=== PATIENT | male | born 1975 | race Caucasian/White ===

== ENCOUNTER → 2017-03-09 | Outpatient (CLI) | payer BC ==
--- NOTE | 2017-03-09 15:20 | XR ---
Right leg HISTORY: Pain 2 views of the right No comparisons Bone mineralization, joint spaces and alignment are maintained IMPRESSION: No fracture or dislocation.
--- NOTE | 2017-03-09 15:21 | XR ---
Right knee HISTORY: Right knee pain 3 views of the right knee There is no joint effusion. Bone mineralization, joint spaces and alignment are maintained. IMPRESSION: No fracture or dislocation.
== END | disposition home or self-care (01) ==
LOC: RADXRMAIN 13:28
PROVIDERS: ATTEND Family Medicine
DX: M25.561 Pain in right knee (principal); M79.604 Pain in right leg

== ENCOUNTER → 2017-03-22 | Outpatient (CLI) | payer BC ==
--- NOTE | 2017-03-22 23:08 | MR ---
EXAMINATION TYPE: MR knee RT wo con DATE OF EXAM: 03/22/2017 COMPARISON: NONE HISTORY: Rt knee pain/injury 8 weeks ago TECHNIQUE: Multiplanar, multisequence imaging of the right knee is performed without IV contrast. FINDINGS: The anterior and posterior cruciate ligaments are intact. The lateral collateral ligaments are intact . There is mild knee joint effusion. Patella tendon is intact. Joint spaces are fairly normal. There is minimal increased signal within the substance of the posterior horn medial meniscus. There is no e vidence of a tear. There is no sign of fracture. There is increased signal and thickening in the medial collateral ligament at its attachment on the m edial femoral condyle. IMPRESSION: Knee joint effusion. There is is at least a partial tear of the medial collateral ligament. Minor deg enerative changes within the posterior horn of the medial meniscus without a complete tear.
== END | disposition home or self-care (01) ==
LOC: RADMRIMAIN 20:55
PROVIDERS: ATTEND Orthopaedic Surgery
DX: S83.411A Sprain of medial collateral ligament of right knee, initial encounter (principal)

== ENCOUNTER 2018-05-04 06:49 | Day surgery (SDC) | payer BC ==
[2018-04-29 10:36] VITALS: BMI 26.4
[~2018-05-04 06:49] MED LIST: HYDROmorphone 0.5 MG/0.5 ML SYRINGE IVP PRN; LACTATED RINGERS 1,000 ML IV SCH; LIDOCAINE 1% 20 ML VIAL (10MG/ML) FOR IV START INTRADERMA PRN
[2018-05-04] MEDS ORDERED: LACTATED RINGERS 1,000 ML IV ONE ×2 (07:07)
[2018-05-04 07:17] VITALS: TEMP 98.5
[2018-05-04] MEDS ORDERED: PROPOFOL 10 MG/ML 20 ML VIAL IV ONE (07:42)
--- NOTE | 2018-05-04 08:02 | P.GSHP ---
History of Present Illness H&P Date: 05/04/18 Chief Complaint: GI bleed This a 43-year-old male who presents today for colonoscopy. Patient has issues with rectal bleeding. He states he has hemorrhoids and possible anal fissure. Past Medical History Past Medical History: GI Bleed Additional Past Medical History / Comment(s): hemorrhoids History of Any Multi-Drug Resistant Organisms: None Reported Past Surgical History: Joint Replacement Additional Past Surgical History / Comment(s): rt hip replacement Past Anesthesia/Blood Transfusion Reactions: No Reported Reaction Smoking Status: Never smoker - Past Family History Mother Family Medical History: No Reported History Medications and Allergies Home Medications Medication Instructions Recorded Confirmed Type ALPRAZolam 0.5 mg PO TID PRN 12/06/14 05/04/18 History Neutrogenics 1 dose PO DAILY 04/29/18 05/04/18 History Viagra (Unknown) 1 dose PO DAILY PRN 04/29/18 05/04/18 History Allergies Allergy/AdvReac Type Severity Reaction Status Date / Time No Known Allergies Allergy Verified 05/04/18 07:18 Surgical - Exam Vital Signs Temp Pulse Resp BP Pulse Ox 98.5 F 78 14 120/77 94 L 05/04/18 07:16 05/04/18 07:16 05/04/18 07:16 05/04/18 07:16 05/04/18 07:16 - General well developed, no distress - Eyes PERRL - ENT normal pinna - Neck no masses - Respiratory normal expansion - Cardiovascular Rhythm: regular - Abdomen Abdomen: soft, non tender Assessment and Plan Assessment: GI bleed We'll perform colonoscopy to evaluate for possible hemorrhoids/anal fissure
--- NOTE | 2018-05-04 08:15 | P.OP ---
Date of Procedure: 05/04/18 Preoperative Diagnosis: GI bleed Anal fissure Hemorrhoids Postoperative Diagnosis: Diverticulosis Internal and external hemorrhoids Posterior midline anal fissure Procedure(s) Performed: Colonoscopy Anesthesia: MAC Surgeon: Anibal Garg Pathology: none sent Condition: stable Disposition: PACU Description of Procedure: The patient's placed on the endoscopy table in the lateral position. He received IV sedation. Digital rectal exam was performed which revealed some internal and external fissures. There was a small anal fissure the posterior midline. The flexible colonoscope was then placed patient anus and passed throughout the entire colon. The ileocecal valve was visualized. The cecum, ascending and transverse colon appeared normal. In the descending and sigmoid colon there was moderate diverticular changes. The scope was then brought back the rectum and this appeared normal. The scope was then retroflexed and there was internal hemorrhoids noted. Scope was then brought through the anus. There were some external hemorrhoids and a small posterior midline fissure seen. The scope was withdrawn for patient.
[2018-05-04 08:37] VITALS: BP 117/79; PULSE 63; RESP 18
== END 2018-05-04 09:04 | disposition home or self-care (01) ==
LOC: ORWHC2ENDO 06:49
PROVIDERS: ATTEND Surgery
DX: K57.30 Diverticulosis of large intestine without perforation or abscess without bleeding (principal); K64.8 Other hemorrhoids; K64.4 Residual hemorrhoidal skin tags; K60.2 Anal fissure, unspecified; Z96.641 Presence of right artificial hip joint; Z79.899 Other long term (current) drug therapy
CPT/HCPCS: 45378; J2704

== ENCOUNTER 2018-06-01 20:43 | Emergency (ER) | payer BC ==
[2018-06-01 21:01] VITALS: TEMP 97
[2018-06-01] MEDS ORDERED: KETOROLAC 30 MG/ML 1 ML VIAL IVP STA (21:35)
--- NOTE | 2018-06-01 21:39 | ED ---
General Adult HPI - General Chief complaint: Urogenital Stated complaint: Urogenital Time Seen by Provider: 06/01/18 21:13 Source: patient Mode of arrival: ambulatory Limitations: no limitations - History of Present Illness Initial comments: This patient is a 43-year-old man who was in his usual state of health until about 7:30 tonight. Around that time he felt like he had to urinate but was not able to pass any urine. He states that he looked on the Internet and thought that he may have urinary tract infection so he went to buy some Azo and took that. About one hour ago he developed pain in the left testicle it does go up toward the left lower quadrant and left flank. He describes as sharp pain , constant, moderately severe intensity. He has not noted worsening or relieving symptoms. No other systemic symptoms. Onset/Timin -: hour(s) Quality: sharp Consistency: constant Improves with: none Worsens with: none Associated Symptoms: other (Inability to urinate) - Related Data Home Medications Medication Instructions Recorded Confirmed Phenazopyridine HCl 95 mg PO TID PRN 06/01/18 06/01/18 Allergies Allergy/AdvReac Type Severity Reaction Status Date / Time No Known Allergies Allergy Verified 06/01/18 21:05 Review of Systems ROS Statement: Those systems with pertinent positive or pertinent negative responses have been documented in the HPI. ROS Other: All systems not noted in ROS Statement are negative. Constitutional: Denies: fever, chills Respiratory: Denies: cough, dyspnea Cardiovascular: Denies: chest pain, edema Gastrointestinal: Reports: as per HPI, abdominal pain, other (Hemorrhoids). Denies: nausea, vomiting, diarrhea, constipation, melena, hematochezia Genitourinary: Reports: urgency, testicular pain. Denies: dysuria, frequency, hematuria, discharge, testicular mass Musculoskeletal: Denies: back pain Skin: Denies: rash Neurological: Denies: headache Past Medical History Past Medical History: GI Bleed Additional Past Medical History / Comment(s): hemorrhoids History of Any Multi-Drug Resistant Organisms: None Reported Past Surgical History: Joint Replacement Additional Past Surgical History / Comment(s): rt hip replacement Past Anesthesia/Blood Transfusion Reactions: No Reported Reaction Past Psychological History: No Psychological Hx Reported Smoking Status: Never smoker Past Alcohol Use History: None Reported Past Drug Use History: None Reported - Past Family History Mother Family Medical History: No Reported History General Exam Limitations: no limitations General appearance: alert, in no apparent distress Head exam: Present: atraumatic, normocephalic Eye exam: Present: normal appearance. Absent: scleral icterus, conjunctival injection Respiratory exam: Present: normal lung sounds bilaterally. Absent: respiratory distress, wheezes, rales, rhonchi, stridor Cardiovascular Exam: Present: regular rate, normal rhythm, normal heart sounds. Absent: systolic murmur, diastolic murmur, rubs, gallop GI/Abdominal exam: Present: soft, normal bowel sounds. Absent: distended, tenderness, guarding, rebound, rigid, mass, pulsatile mass, hernia exam: Present: normal inspection, vertical testicular lie, circumcision, other (No inguinal nodes). Absent: testicular tenderness, urethral discharge, scrotal swelling External exam: Present: normal external exam Extremities exam: Present: normal inspection, normal capillary refill. Absent: pedal edema, calf tenderness Back exam: Present: normal inspection. Absent: CVA tenderness (R), CVA tenderness (L) Neurological exam: Present: alert Skin exam: Present: warm, dry, intact, normal color. Absent: rash Course Vital Signs 06/01/18 06/01/18 06/01/18 20:57 21:57 22:48 Temperature 97 F L Pulse Rate 66 59 L 68 Respiratory 18 16 16 Rate Blood Pressure 123/100 126/86 127/90 O2 Sat by Pulse 98 95 96 Oximetry Medical Decision Making - Medical Decision Making The patient did have resolution of the symptoms here in the emergency department. This was prior to receiving any medication. He does have urine with hematuria, consistent with stone. I did offer imaging, but patient states that the pain is gone and he needs to get his son home so he declined to have imaging today. We discussed appropriate further care and follow-up as well as return parameters. - Lab Data Result diagrams: 06/01/18 21:33 06/01/18 21:33 Lab Results 06/01/18 06/01/18 06/01/18 Range/Units 21:00 21:33 21:33 WBC 9.8 (3.8-10.6) k/uL RBC 4.68 (4.30-5.90) m/uL Hgb 15.7 (13.0-17.5) gm/dL Hct 43.0 (39.0-53.0) % MCV 92.0 (80.0-100.0) fL MCH 33.5 (25.0-35.0) pg MCHC 36.4 (31.0-37.0) g/dL RDW 12.7 (11.5-15.5) % Plt Count 313 (150-450) k/uL Neutrophils % 67 % Lymphocytes % 23 % Monocytes % 5 % Eosinophils % 3 % Basophils % 1 % Neutrophils # 6.6 (1.3-7.7) k/uL Lymphocytes # 2.3 (1.0-4.8) k/uL Monocytes # 0.5 (0-1.0) k/uL Eosinophils # 0.3 (0-0.7) k/uL Basophils # 0.1 (0-0.2) k/uL Sodium 139 (137-145) mmol/L Potassium 4.2 (3.5-5.1) mmol/L Chloride 106 (98-107) mmol/L Carbon Dioxide 23 (22-30) mmol/L Anion Gap 10 mmol/L BUN 22 H (9-20) mg/dL Creatinine 0.88 (0.66-1.25) mg/dL Est GFR (CKD-EPI)AfAm >90 (>60 ml/min/1.73 sqM) Est GFR (CKD-EPI)NonAf >90 (>60 ml/min/1.73 sqM) Glucose 124 H (74-99) mg/dL Calcium 9.5 (8.4-10.2) mg/dL Urine Color Dark Yellow Urine Appearance Clear (Clear) Urine pH 5.5 (5.0-8.0) Ur Specific [place] 1.023 (1.001-1.035) Urine Protein Negative (Negative) Urine Glucose (UA) Negative (Negative) Urine Ketones Negative (Negative) Urine Blood Moderate H (Negative) Urine Nitrite Negative (Negative) Urine Bilirubin Negative (Negative) Urine Urobilinogen <2.0 (<2.0) mg/dL Ur Leukocyte Esterase Negative (Negative) Urine RBC 51 H (0-5) /hpf Urine WBC 1 (0-5) /hpf Ur Squamous Epith Cells <1 (0-4) /hpf Urine Mucus Rare H (None) /hpf Disposition Clinical Impression: Kidney stone Disposition: HOME SELF-CARE Condition: Good Instructions: Kidney Stones (ED) Is patient prescribed a controlled substance at d/c from ED?: No Referrals: Blaine Gonzalez DO [Primary Care Provider] - 1-2 days
[2018-06-01 21:49] LABS: Basophils # (A) 0.1 k/uL (0-0.2); Basophils % (A) 1 %; Eosinophils # (A) 0.3 k/uL (0-0.7); Eosinophils % (A) 3 %; HGB 15.7 gm/dL (13.0-17.5); Lymphocytes # (A) 2.3 k/uL (1.0-4.8); Lymphocytes % (A) 23 %; MCH 33.5 pg (25.0-35.0); MCHC 36.4 g/dL (31.0-37.0); Mean Platelet Volume 6.6; Monocytes # (A) 0.5 k/uL (0-1.0); Monocytes % (A) 5 %; Neutrophils # (A) 6.6 k/uL (1.3-7.7); Neutrophils % (A) 67 %; Platelet Count 313 k/uL (150-450); RBC 4.68 m/uL (4.30-5.90); RDW 12.7 % (11.5-15.5); WBC 9.8 k/uL (3.8-10.6)
[2018-06-01 21:58] VITALS: RESP 16
[2018-06-01 21:59] LABS: Anion Gap 10 mmol/L; Blood Urea Nitrogen 22 mg/dL (9-20); Calcium 9.5 mg/dL (8.4-10.2); Carbon Dioxide 23 mmol/L (22-30); Chloride 106 mmol/L (98-107); Glucose 124 mg/dL (74-99); Potassium 4.2 mmol/L (3.5-5.1); Sodium 139 mmol/L (137-145)
[2018-06-01 22:14] LABS: Appearance,Urine Clear (Clear); Bilirubin,Urine Negative (Negative); Blood,Urine Moderate (Negative); Color,Urine Dark Yellow; Glucose,Urine (UA) Negative (Negative); Ketones,Urine Negative (Negative); Leukocyte Esterase,Urine Negative (Negative); Mucus,Urine Rare /hpf; Nitrite,Urine Negative (Negative); PH, Urine 5.5 (5.0-8.0); Protein,Urine Negative (Negative); RBC,Urine 51 /hpf (0-5); Specific Gravity,Urine 1.023 (1.001-1.035); Squamous Epithelial Cell,Urine <1 /hpf (0-4); Urobilinogen,Urine <2.0 mg/dL (<2.0); WBC,Urine 1 /hpf (0-5)
[2018-06-01 22:49] VITALS: BP 127/90; PULSE 68
== END 2018-06-01 22:49 | disposition home or self-care (01) ==
LOC: EC 20:43
DX: N20.0 Calculus of kidney (principal); N50.812 Left testicular pain; Z96.641 Presence of right artificial hip joint
CPT/HCPCS: 36415; 80048; 85025; 81001; 99284; 96374; J1885

== ENCOUNTER 2018-07-13 06:07 | Day surgery (SDC) | payer BC ==
[2018-07-11 09:35] VITALS: BMI 26.7
[~2018-07-13 06:07] MED LIST changes: +DEXAMETHASONE SOD PHOSPHATE 10 MG/ML 1 ML VIAL IV ONE; +HEPARIN SODIUM,PORCINE 5,000 UNIT/ML 1 ML VIAL SQ ONE; +MIDAZOLAM 2 MG/2 ML VIAL IV PRN; +ONDANSETRON 4 MG/2 ML VIAL IVP ONE; +Pre Op ABX Message 1 EACH MISC MISCELLANE ONE; +SCOPOLAMINE 1.5MG/72HR PATCH TRANSDERM ONE
[2018-07-13] MEDS ORDERED: NA PHOS,M-B/NA PHOS,DI-BA 133 ML ENEMA RECTAL ONE (06:13)
[2018-07-13 07:02] VITALS: RESP 16; TEMP 97.9
[2018-07-13] MEDS ORDERED: fentaNYL (PF) 50 MCG/ML 2 ML AMP ONE (08:03)
[2018-07-13] MEDS ORDERED: MIDAZOLAM 2 MG/2 ML VIAL ONE (08:03)
[2018-07-13] MEDS ORDERED: KETAMINE 10 MG/ML 20 ML VIAL ONE (08:03)
[2018-07-13] MEDS ORDERED: KETOROLAC 30 MG/ML 1 ML VIAL ONE (08:03)
[2018-07-13] MEDS ORDERED: PROPOFOL 10 MG/ML 20 ML VIAL IV ONE (08:03)
[2018-07-13] MEDS ORDERED: LIDOCAINE 1% INJ 10MG/ML (20 ML MDV) ONE (08:03)
--- NOTE | 2018-07-13 08:04 | P.GSHP ---
History of Present Illness H&P Date: 07/13/18 Chief Complaint: Hemorrhoids 43-year-old male presents today for hemorrhoidectomy. Patient had problems internal and external hemorrhoids. Past Medical History Past Medical History: GI Bleed Additional Past Medical History / Comment(s): hemorrhoids, KIDNEY STONES History of Any Multi-Drug Resistant Organisms: None Reported Past Surgical History: Joint Replacement Additional Past Surgical History / Comment(s): rt hip replacement Past Anesthesia/Blood Transfusion Reactions: No Reported Reaction Smoking Status: Never smoker - Past Family History Mother Family Medical History: No Reported History Medications and Allergies Home Medications Medication Instructions Recorded Confirmed Type No Known Home Medications 07/11/18 07/13/18 History Allergies Allergy/AdvReac Type Severity Reaction Status Date / Time No Known Allergies Allergy Verified 07/13/18 06:49 Surgical - Exam Vital Signs Temp Pulse Resp BP Pulse Ox 97.9 F 61 16 125/82 96 07/13/18 06:59 07/13/18 06:59 07/13/18 06:59 07/13/18 06:59 07/13/18 06:59 - General well developed, well nourished, no distress - Eyes PERRL - ENT normal pinna - Neck no masses - Respiratory normal expansion - Cardiovascular Rhythm: regular - Abdomen Abdomen: soft, non tender - Rectum Internal and external hemorrhoids Assessment and Plan Assessment: Internal and external hemorrhoids. We'll perform hemorrhoiddectomy
[2018-07-13] MEDS ORDERED: BUPIVACAIN-EPI 0.25%-1:200,000 30 ML VIAL SQ ONE (08:29)
--- NOTE | 2018-07-13 09:11 | P.OP ---
Date of Procedure: 07/13/18 Preoperative Diagnosis: Internal and external hemorrhoids Postoperative Diagnosis: Internal and external hemorrhoids Procedure(s) Performed: Internal and external hemorrhoidectomy Anesthesia: MAC, local Surgeon: Anibal Garg Estimated Blood Loss (ml): 5 Pathology: other (Internal and external hemorrhoids) Condition: stable Disposition: PACU Description of Procedure: The patient's placed on the operating table in the prone jackknife position. He received IV sedation. His anus was prepped and draped usual fashion. Using 1% local Xylocaine a block of the anus was performed. The patient had internal and external hemorrhoids. The left lateral hemorrhoid column was examined. The bivalved anal retractors placed and anus. And then using a pair of Allis clamps the hemorrhoidal column was grasped. Using the Harmonic scissors the hemorrhoidectomy is performed. Next the right anterior and right posterior columns were removed in identical fashion. The is suspected for bleeding. Several small superficial veins were coagulate. The anus was packed with Gelfoam. Patient tolerated well and was sent to recovery in stable condition.
[2018-07-13] MEDS ORDERED: HYDROcodone/APAP 7.5-325MG 1 EACH TAB PO ONE (09:29)
[2018-07-13 09:54] VITALS: BP 112/78; PULSE 71
== END 2018-07-13 09:58 | disposition home or self-care (01) ==
LOC: OR 06:07
PROVIDERS: ATTEND Surgery
DX: K64.4 Residual hemorrhoidal skin tags (principal); K64.8 Other hemorrhoids; K62.9 Disease of anus and rectum, unspecified; Z87.442 Personal history of urinary calculi
CPT/HCPCS: 88304; 46260; J2250; J1644; J1100; J2405; J2001; J3010; J1885; J2704

== ENCOUNTER 2018-07-17 15:43 | Emergency (ER) | payer BC ==
[2018-07-17 16:09] VITALS: RESP 16
[2018-07-17] MEDS ORDERED: ACETAMINOPHEN TAB 325 MG TAB PO STA (17:16)
--- NOTE | 2018-07-17 17:25 | ED ---
General Adult HPI - General Chief complaint: Recheck/Abnormal Lab/Rx Stated complaint: Post surgery stitiches came out Source: patient, RN notes reviewed, old records reviewed Mode of arrival: ambulatory Limitations: no limitations - History of Present Illness Initial comments: 43-year-old male patient with no pertinent past history presents to ED with rectal bleeding. Patient is 4 days status post hemorrhoidectomy. Last night while having bowel movement he experienced pain, has had a moderate amount of bleeding since. Patient states that he has soiled approximately 10 pads since last night. Patient presents to ER for further evaluation. Surgery was performed by Dr. Lemus. Patient denies other symptoms including chest pain, shortness of breath, abdominal pain, nausea vomiting diarrhea, fever or chills. Systemic: Pt denies fatigue, myalgia, fever/chills, rash. Pt denies weakness, night sweats, weight loss. Neuro: Pt denies headache, visual disturbances, syncope or pre-syncope. HEENT: Pt denies ocular discharge or irritation, otalgia, rhinorrhea, pharyngitis or notable lymphadenopathy. Cardiopulmonary: Pt denies chest pain, SOB, heart palpitations, dyspnea on exertion. Abdominal/GI: Pt denies abdominal pain, n/v/d. : Pt denies dysuria, burning w/ urination, frequency/urgency. Denies new onset urinary or bowel incontinence. MSK: Pt denies myalgia, loss of strength or function in extremities. Neuro: Pt denies new onset weakness, paresthesias. - Related Data Home Medications Medication Instructions Recorded Confirmed diphenhydrAMINE [Benadryl] 50 mg PO Q4H PRN 07/17/18 07/17/18 Previous Rx's Medication Instructions Recorded Docusate [Colace] 100 mg PO BID #20 capsule 07/13/18 HYDROcodone/APAP 7.5-325MG [[place] 1 tab PO Q4H PRN 3 Days #18 tab 07/13/18 7.5-325] Allergies Allergy/AdvReac Type Severity Reaction Status Date / Time acetaminophen [From [place]] AdvReac Itching Verified 07/17/18 16:33 hydrocodone [From [place]] AdvReac Itching Verified 07/17/18 16:33 Review of Systems ROS Statement: Those systems with pertinent positive or pertinent negative responses have been documented in the HPI. ROS Other: All systems not noted in ROS Statement are negative. Past Medical History Past Medical History: GI Bleed Additional Past Medical History / Comment(s): hemorrhoids, KIDNEY STONES History of Any Multi-Drug Resistant Organisms: None Reported Past Surgical History: Joint Replacement Additional Past Surgical History / Comment(s): rt hip replacement Past Anesthesia/Blood Transfusion Reactions: No Reported Reaction Past Psychological History: No Psychological Hx Reported Smoking Status: Never smoker - Past Family History Mother Family Medical History: No Reported History General Exam - General Exam Comments Initial Comments: Constitutional: NAD, AOX3, Pt has pleasant affect. HEENT: NC/AT, trachea midline, neck supple, no lymphadenopathy. Posterior pharynx non erythematous, without exudates. External ears appear normal, without discharge. Mucous membranes moist. Eyes PERRLA, EOM intact. There is no scleral icterus. No pallor noted. Cardiopulmonary: RRR, no murmurs, rubs or gallops, no JVD noted. Lungs CTAB in anterior and posterior greene. No peripheral edema. Abdominal exam: Abdomen soft and non-distended. Abdomen non-tender to palpation in all 4 quadrants. Bowel sounds active in LLQ. No hepatosplenomegaly. No ecchymosis Neuro: CN II-XII grossly intact. No nuchal rigidity. MSK: No posterior calf tenderness bilaterally, homans sign negative bilaterally. Posterior tibialis and radial pulse +2 bilaterally. Sensation intact in upper and lower extremities. Full active ROM in upper and lower extremities, 5/5 strength. Rectal: Approximately 0.5 cm area of skin previously closed now moderately open at 7:00. Small amount of purulent drainage noted. No active bleeding noted. No other abnormal findings in rectal exam. Limitations: no limitations Course Vital Signs 07/17/18 07/17/18 16:05 17:31 Temperature 100 F H 98.4 F Pulse Rate 80 60 Respiratory 16 16 Rate Blood Pressure 129/86 118/91 O2 Sat by Pulse 95 96 Oximetry Medical Decision Making - Medical Decision Making 43-year-old male patient approximately 5 days status post hemorrhoidectomy presents to ED with 2 days of rectal bleeding, pain. Patient states that last night having a bowel movement he had pain, has had moderate amount of bleeding since then. Patient presents to ED for further evaluation. Physical exam a rectal region did display a small opening at approximate 7:00 was previously closed. No active bleeding is noted, small amount of purulent drainage noted. Initial set of vitals displayed a 100.0F fever, patient was administered antibiotic, second set of vitals revealed a normal temperature at 98.4. Dr. Rai was contacted, patient case was explained to him in depth. He recommended no immediate intervention, the patient to follow up at his scheduled postoperative visit which per the patient is on 07/20. Patient to follow-up with PCP in 1-2 days. Patient prescribed Tylenol 3 starter pack for pain control. Patient to return to ED if new signs or symptoms develop including worsening pain, nausea vomiting diarrhea, fever or chills, significant bleeding, any other new symptoms. case discussed with Dr. harman. Disposition Clinical Impression: Post-operative pain Disposition: HOME SELF-CARE Condition: Good Instructions: Acetaminophen/Codeine (By mouth) Additional Instructions: Patient to adhere to previously discussed treatment plan and will take medication(s) as directed. Patient to follow up with PCP in 1-2 days. Patient to return to ED if symptoms do not improve. Is patient prescribed a controlled substance at d/c from ED?: No Referrals: Blaine Gonzalez DO [Primary Care Provider] - 1-2 days Anibal Garg MD [STAFF PHYSICIAN] - 1-2 days Time of Disposition: 17:47
[2018-07-17 17:32] VITALS: BP 118/91; PULSE 60; TEMP 98.4
[2018-07-17] MEDS ORDERED: ACET/COD 300 MG/30 MG STARTER PACK 6 TAB BTL PO STA (17:35)
== END 2018-07-17 17:57 | disposition home or self-care (01) ==
LOC: EC 15:43
DX: G89.18 Other acute postprocedural pain (principal); Z98.890 Other specified postprocedural states; Z96.641 Presence of right artificial hip joint; Z88.6 Allergy status to analgesic agent; Z88.5 Allergy status to narcotic agent
CPT/HCPCS: 99283

== ENCOUNTER → 2019-03-14 | Outpatient (CLI) | payer BC ==
--- NOTE | 2019-03-14 11:19 | P.STRESS ---
- Stress Test Note Stress Test Results/Findings: Exam Performed: stress test Exam Date: 03/14/19 Reason for Exam: CHEST PAIN Height: 5 ft 11 in Weight: 87.543 kg Protocol: MARNIE Stage: 4 Duration of Exercise: 12:00 Resting Heart Rate: 67 Resting Blood Pressure: 137/91 Maximum Achieved Heart Rate: 152 Maximum Achieved Blood Pressure: 204/78 85% PMHR: 150 100% PMHR: 176 METS: 11.9 Technologist Comment: Stress Test Results/Findings: Baseline heart rate 67 beats a minute Baseline blood pressure 137/91 mmHg Baseline twelve-lead ECG shows sinus rhythm with normal cardiac intervals Patient exercised on a Marnie protocol for 12 minutes achieving a peak heart rate of 152 beats a minute Hypertensive response to exercise There was no seizure ms for ischemia no arrhythmias are noted no symptoms noted Impression good exercise capacity no ECG evidence for ischemia no arrhythmias
== END | disposition home or self-care (01) ==
LOC: RADNMMAIN 08:50
PROVIDERS: ATTEND Family Medicine
DX: R07.89 Other chest pain (principal)
CPT/HCPCS: 93017

== ENCOUNTER → 2019-04-03 | Outpatient (CLI) | payer BC ==
--- NOTE | 2019-04-04 13:01 | ECHOF ---
Referral Reason:R07.89 Chest pain MEASUREMENTS -------- HEIGHT: 180.3 cm WEIGHT: 86.2 kg BP: RVIDd: 4.4 cm (< 3.3) IVSd: 1.1 cm (0.6 - 1.1) LVIDd: 5.0 cm (3.9 - 5.3) LVPWd: 1.3 cm (0.6 - 1.1) IVSs: 1.6 cm LVIDs: 3.3 cm LVPWs: 2.2 cm LAESV Index (A-L): 25.55 ml/m Ao Diam: 3.5 cm (2.0 - 3.7) AV Cusp: 2.4 cm (1.5 - 2.6) LA Diam: 3.9 cm (2.7 - 3.8) MV EXCURSION: 22.213 mm (> 18.000) MV EF SLOPE: 192 mm/s (70 - 150) EPSS: 0.2 cm MV E Hao: 0.63 m/s MV DecT: 158 ms MV A Hao: 0.41 m/s MV E/A Ratio: 1.56 RAP: 5.00 mmHg RVSP: 30.03 mmHg FINDINGS -------- Sinus rhythm. This was a technically adequate study. The left ventricular size is normal. There is borderline concentric left ventricular hypertrophy. There is normal global left ventricular contractility. Overall left ventricular systolic function is normal with, an EF between 60 - 65 %. The diastolic filling pattern is normal for the age of the patient 4.08. The right ventricle is mild to moderately enlarged. Normal LA size by volume 22+/-6 ml/m2. The right atrium is mildly enlarged. Interatrial and interventricular septum intact. The aortic valve is trileaflet and appears structurally normal. There is no evidence of aortic regu rgitation. There is no evidence of aortic stenosis. No mitral regurgitation. Mild tricuspid regurgitation present. There is borderline pulmonary hypertension. The right ventr icular systolic pressure, as measured by Doppler, is 30.03mmHg. There is no pulmonic regurgitation present. The aortic root size is normal. The inferior vena cava is mildly dilated. There is no pericardial effusion. CONCLUSIONS -------- 1. Sinus rhythm. 2. This was a technically adequate study. 3. The left ventricular size is normal. 4. There is borderline concentric left ventricular hypertrophy. 5. There is normal global left ventricular contractility. 6. Overall left ventricular systolic function is normal with, an EF between 60 - 65 %. 7. The diastolic filling pattern is normal for the age of the patient 4.08 8. The right ventricle is mild to moderately enlarged. 9. Normal LA size by volume 22+/-6 ml/m2. 10. The right atrium is mildly enlarged. 11. Interatrial and interventricular septum intact. 12. The aortic valve is trileaflet and appears structurally normal. 13. There is no evidence of aortic regurgitation. 14. There is no evidence of aortic stenosis. 15. No mitral regurgitation. 16. Mild tricuspid regurgitation present. 17. There is borderline pulmonary hypertension. 18. The right ventricular systolic pressure, as measured by Doppler, is 30.03mmHg. 19. There is no pulmonic regurgitation present. 20. The aortic root size is normal. 21. The inferior vena cava is mildly dilated. 22. There is no pericardial effusion. SOCIAL SCIENCES LECTURER: Daisha Ramos RDCS
== END | disposition home or self-care (01) ==
LOC: RADECHMAIN 15:58
PROVIDERS: ATTEND Family Medicine
DX: I07.1 Rheumatic tricuspid insufficiency (principal)
CPT/HCPCS: 93306

== ENCOUNTER → 2019-06-01 | Outpatient (CLI) | payer BC ==
[2019-06-01 10:39] LABS: HCT 46.4 % (39.0-53.0); HGB 16.4 gm/dL (13.0-17.5); MCH 33.4 pg (25.0-35.0); MCHC 35.4 g/dL (31.0-37.0); MCV 94.3 fL (80.0-100.0); Mean Platelet Volume 5.8; Platelet Count 332 k/uL (150-450); RBC 4.92 m/uL (4.30-5.90); RDW 12.5 % (11.5-15.5); WBC 8.1 k/uL (3.8-10.6)
[2019-06-01 10:45] LABS: African American GFR (CKD) >90 (>60 ml/min/1.73 sqM); Anion Gap 11 mmol/L; Blood Urea Nitrogen 27 mg/dL (9-20); Carbon Dioxide 25 mmol/L (22-30); Chloride 104 mmol/L (98-107); Potassium 4.8 mmol/L (3.5-5.1); Sodium 140 mmol/L (137-145)
== END | disposition home or self-care (01) ==
LOC: LABPAT 09:36
PROVIDERS: ATTEND Internal Medicine Interventional Cardiology
DX: Z01.812 Encounter for preprocedural laboratory examination (principal); R07.9 Chest pain, unspecified
CPT/HCPCS: 36415; 80051; 82565; 84520; 85027

== ENCOUNTER 2019-06-05 06:24 | Day surgery (SDC) | payer BC ==
[2019-06-01 11:23] VITALS: BMI 27.0
[2019-06-05] MEDS ORDERED: SODIUM CHLORIDE 0.9% 1,000 ML in EMPTY BAG 1 BAG IV ONE (06:42)
[2019-06-05] MEDS ORDERED: ASPIRIN 325 MG TAB PO STA (06:42)
[2019-06-05] MEDS ORDERED: ALPRAZolam 0.5 MG TAB PO PRN (06:42)
[2019-06-05] MEDS ORDERED: ALPRAZolam 0.25 MG TAB PO PRN (06:42)
[2019-06-05] MEDS ORDERED: NITROGLYCERIN SL TABS 0.4 MG TAB SUBLINGUAL PRN (06:42)
[2019-06-05] MEDS ORDERED: ATORVASTATIN 80 MG TAB PO STA (06:42)
[2019-06-05] MEDS ORDERED: SODIUM CHLORIDE 0.9% 1,000 ML IV ONE (07:07)
[2019-06-05 07:10] VITALS: RESP 16; TEMP 98.1
[2019-06-05] MEDS: VERAPAMIL SYRINGE (5 MG/10 ML) INTRAARTER ONE ×2 (07:54→08:05)
[2019-06-05] MEDS ORDERED: MIDAZOLAM 2 MG/2 ML VIAL IVP ONE (07:54)
[2019-06-05] MEDS ORDERED: LIDOCAINE 1% INJ 10MG/ML (20 ML MDV) SQ ONE (07:54)
[2019-06-05] MEDS ORDERED: HEPARIN SODIUM 1,000 UN/ML (10ML VL) IV ONE (07:56)
[2019-06-05] MEDS ORDERED: IOPAMIDOL-370 125ML BTL INJ ONE (08:05)
[2019-06-05] MEDS ORDERED: RX INFO: IV CONTRAST WAS GIVEN 1 EACH MISC MISCELLANE PRN (08:09)
--- NOTE | 2019-06-05 08:14 | P.PCN ---
Date of Procedure: 06/05/19 Operative Findings: CARDIAC CATHETERIZATION PERFORMING PHYSICIAN: Gonzales Gutierres MD, RPVI PROCEDURE PERFORMED: 1. Selective right and left coronary angiogram 2. Left heart catheterization INDICATION: This is a 44-year-old gentleman with a very significant family history of coronary artery disease continues to have chest discomfort concerning for severe underlying coronary artery disease. Because of that coronary angiogram was advised. COMPLICATION: None APPROACH: Right radial artery LEVEL OF SEDATION: Moderate with a sedation length of 19 minutes PROCEDURE DESCRIPTION: After obtaining an informed consent, the patient was brought to cardiac labor operator. Local anesthesia was performed using lidocaine subcutaneously. The right radial artery was cannulated using Seldinger technique, the guidewire passed easily, following that we advanced a 5-Egyptian sheath dilator assembly, the wire and dilator were removed and sheath was flushed. Following that, 2 mg of verapamil along with 5000 unit heparin were given. Selective right and left coronary angiogram using a 6-Egyptian JR4 and JL 3.5 cath eters. Following that we did left heart catheterization using 6-Egyptian pigtail catheter. The procedure was completed there was no complication. SELECTIVE CORONARY ANGIOGRAM: The right coronary artery: Is a large caliber vessel and a dominant vessel. Its angiographically normal. Distally bifurcates into PDA and PLV branches and both appeared to be aliyah ographically normal. Left main: It is angiographically normal. Bifurcates into left circumflex and left anterior descending artery. The left circumflex: Is a large caliber vessel and its and on dominant vessel. Its angiographically normal. In the midportion gives rises into a large OM branch which appears to be angiographically normal. The left anterior descending artery: It is angiographically normal. Proximally gives rises into the first and second diagonal branches and both appeared to be angiographically normal. HEMODYNAMICS: The LVEDP was 8-12 mmHg without significant gradient across aortic valve CONCLUSION: Normal coronary angiogram Normal left ventricular end-diastolic pressure POSTPROCEDURE MANAGEMENT: Medical treatment Follow-up with the patient
[2019-06-05] MEDS ORDERED: SODIUM CHLORIDE 0.9% 1,000 ML IV SCH (08:15)
[2019-06-05 12:42] VITALS: BP 134/73; PULSE 76
== END 2019-06-05 12:43 | disposition home or self-care (01) ==
LOC: CATHCVL 06:24
PROVIDERS: ATTEND Internal Medicine Interventional Cardiology
DX: I20.0 Unstable angina (principal); Z95.5 Presence of coronary angioplasty implant and graft; E78.5 Hyperlipidemia, unspecified; Z79.82 Long term (current) use of aspirin; Z79.899 Other long term (current) drug therapy
CPT/HCPCS: 93458; 80051; 82565; 84520; 85027; 36415; C1769; C1894; J2250; J2001; J1644; Q9967

== ENCOUNTER → 2020-01-18 | Day surgery (SDC) | payer BC ==
[2020-01-16 15:19] VITALS: BMI 26.4
[~2020-01-18] MED LIST changes: -DEXAMETHASONE SOD PHOSPHATE 10 MG/ML 1 ML VIAL IV ONE; -HEPARIN SODIUM,PORCINE 5,000 UNIT/ML 1 ML VIAL SQ ONE; -HYDROmorphone 0.5 MG/0.5 ML SYRINGE IVP PRN; -LIDOCAINE 1% 20 ML VIAL (10MG/ML) FOR IV START INTRADERMA PRN; +LIDOCAINE 1% INJ 10MG/ML (20 ML MDV) ONE; -MIDAZOLAM 2 MG/2 ML VIAL IV PRN; -ONDANSETRON 4 MG/2 ML VIAL IVP ONE; +PROPOFOL 10 MG/ML 20 ML VIAL IV ONE; -Pre Op ABX Message 1 EACH MISC MISCELLANE ONE; -SCOPOLAMINE 1.5MG/72HR PATCH TRANSDERM ONE
[2020-01-18 10:12] VITALS: TEMP 97.4
--- NOTE | 2020-01-18 10:49 | P.GSHP ---
History of Present Illness H&P Date: 01/18/20 Chief Complaint: GERD This 44-year-old male with complaints of GERD. He presents today for EGD. Past Medical History Past Medical History: Chest Pain / Angina, Hyperlipidemia Additional Past Medical History / Comment(s): Hx KIDNEY STONES. Poss stomach ulcer, on po Rx for sev months. History of Any Multi-Drug Resistant Organisms: None Reported Past Surgical History: Joint Replacement, Tonsillectomy Additional Past Surgical History / Comment(s): Rt hip replacement, hemorrhoidectomy, lasik eye surgery Past Anesthesia/Blood Transfusion Reactions: No Reported Reaction Smoking Status: Never smoker - Past Family History Mother Family Medical History: No Reported History Medications and Allergies Home Medications Medication Instructions Recorded Confirmed Type Valtrex(Dose Unknown) 1 tab PO HS 06/01/19 01/16/20 History Stomach Ulcer Rx (Unknown) 1 tab PO DAILY 01/16/20 History Allergies Allergy/AdvReac Type Severity Reaction Status Date / Time hydrocodone [From [place]] AdvReac Itching Verified 01/18/20 10:13 Surgical - Exam Vital Signs Temp Pulse Resp BP Pulse Ox 97.4 F L 84 14 122/89 97 01/18/20 10:11 01/18/20 10:11 01/18/20 10:11 01/18/20 10:11 01/18/20 10:11 - General well developed - Eyes PERRL - ENT normal pinna - Neck no masses - Respiratory normal expansion - Cardiovascular Rhythm: regular - Abdomen Abdomen: soft, non tender Assessment and Plan Assessment: GERD. We'll perform EGD.
--- NOTE | 2020-01-18 11:06 | P.OP ---
Date of Procedure: 01/18/20 Preoperative Diagnosis: GERD Postoperative Diagnosis: Antral gastritis No evidence of hiatal hernia Mild esophagitis Procedure(s) Performed: EGD Anesthesia: MAC Surgeon: Anibal Garg Pathology: other (Esophagus) Condition: stable Disposition: PACU Description of Procedure: Patient's placed on the endoscopy table in the lateral position. He received IV sedation. The gastric was placed oropharynx and passed in the esophagus and stomach. Scope was then placed through the pylorus. The first and second portion of the duodenum appeared normal. Scope was then brought back the antrum and this appeared mildly inflamed. A biopsies performed. The scope was unretroflexed and remainder of the stomach appeared normal. There was no significant hiatal hernia. The GE junction was at 40 cm. The distal esophagus appeared inflamed and a biopsies performed. The proximal esophagus appeared normal. Scope was withdrawn for patient.
[2020-01-18 11:13] VITALS: RESP 16
[2020-01-18 11:46] VITALS: BP 117/85; PULSE 59
== END | disposition home or self-care (01) ==
LOC: ORWHC2ENDO 09:52
PROVIDERS: ATTEND Surgery
DX: K29.50 Unspecified chronic gastritis without bleeding (principal); K21.0 Gastro-esophageal reflux disease with esophagitis; E78.5 Hyperlipidemia, unspecified; Z88.5 Allergy status to narcotic agent; Z87.442 Personal history of urinary calculi; Z90.89 Acquired absence of other organs; Z96.641 Presence of right artificial hip joint; Z98.49 Cataract extraction status, unspecified eye; Z79.899 Other long term (current) drug therapy
CPT/HCPCS: 88305; 43239; J2001; J2704

== ENCOUNTER → 2020-01-22 | Outpatient (CLI) | payer BC ==
--- NOTE | 2020-01-22 17:29 | NM ---
EXAMINATION TYPE: NM hepatobiliary w CCK DATE OF EXAM: 01/22/2020 COMPARISON: NONE HISTORY: Abdominal pain TECHNIQUE: After the intravenous administration of 4.1 mCi Tc 99m Mebrofenin hepatobiliary scintigrap hy is performed. Immediate images post injection. FINDINGS: There is satisfactory initial accumulation of tracer by the liver. The gallbladder is visualized wit hin 8 minutes. The small bowel activity is noted within 20 minutes. At one hour CCK was administere d, patient was injected with 1.75 mcg of Kinevac, and gallbladder ejection fraction is calculated at 97 %, above the upper limit of the normal range. Therefore there is no scintigraphic evidence of cy stic or common bile duct obstruction to suggest acute cholecystitis. IMPRESSION: Findings may represent hyperdynamic gallbladder
== END | disposition home or self-care (01) ==
LOC: RADNMMAIN 14:29
PROVIDERS: ATTEND Surgery
DX: R10.9 Unspecified abdominal pain (principal)
CPT/HCPCS: 78227; A9537; J2805

== ENCOUNTER 2020-02-13 08:13 | Day surgery (SDC) | payer BC ==
[2020-02-07 13:16] VITALS: BMI 26.4
[~2020-02-13 08:13] MED LIST changes: +ACETAMINOPHEN TAB 500 MG TAB PO ONE; +DEXAMETHASONE SOD PHOSPHATE 10 MG/ML 1 ML VIAL IV ONE; +HEPARIN SODIUM,PORCINE 5,000 UNIT/ML 1 ML VIAL SQ ONE; +HYDROmorphone 0.5 MG/0.5 ML SYRINGE IVP PRN; +LIDOCAINE 1% (10MG/ML) FOR IV START INTRADERMA PRN; -LIDOCAINE 1% INJ 10MG/ML (20 ML MDV) ONE; +MIDAZOLAM 2 MG/2 ML VIAL IV PRN; -PROPOFOL 10 MG/ML 20 ML VIAL IV ONE; +fentaNYL (PF) 50 MCG/ML 2 ML AMP IV PRN
[2020-02-13 08:31] VITALS: RESP 16
[2020-02-13] MEDS ORDERED: ONDANSETRON 4 MG/2 ML VIAL ONE (08:34)
[2020-02-13] MEDS ORDERED: ACETAMINOPHEN TAB 500 MG TAB ONE (08:34)
[2020-02-13] MEDS ORDERED: HEPARIN SODIUM,PORCINE 5,000 UNIT/ML 1 ML VIAL ONE (08:34)
[2020-02-13] MEDS: ONDANSETRON 4 MG/2 ML VIAL IVP ONE ×2 (08:50→11:00)
[2020-02-13] MEDS ORDERED: FAMOTIDINE 20 MG/2 ML VIAL IV ONE (09:08)
--- NOTE | 2020-02-13 09:09 | P.GSHP ---
History of Present Illness H&P Date: 02/13/20 Chief Complaint: Right upper quadrant pain This a 44-year-old male who's had complaints of GERD and right upper quadrant pain. His recent HIDA scan shows a hyperkinetic gallbladder with 97% ejection fraction. Patient rents today for laparoscopic cholecystectomy. Past Medical History Past Medical History: Hyperlipidemia Additional Past Medical History / Comment(s): Hx KIDNEY STONES. hx. of high cholesterol, states is fine now. Hx. of chest pain r/t gallbladder issues. History of Any Multi-Drug Resistant Organisms: None Reported Past Surgical History: Joint Replacement, Tonsillectomy Additional Past Surgical History / Comment(s): Rt hip replacement, hemorrhoidectomy, lasik eye surgery Past Anesthesia/Blood Transfusion Reactions: No Reported Reaction Smoking Status: Never smoker - Past Family History Mother Family Medical History: No Reported History Medications and Allergies Home Medications Medication Instructions Recorded Confirmed Type Valtrex(Dose Unknown) 1 tab PO HS 06/01/19 02/07/20 History ALPRAZolam [Xanax] 0.5 mg PO HS 02/07/20 02/07/20 History Allergies Allergy/AdvReac Type Severity Reaction Status Date / Time hydrocodone [From [place]] AdvReac Itching Verified 02/13/20 08:28 Surgical - Exam Vital Signs Temp Pulse Resp BP Pulse Ox 98.0 F 66 16 125/81 96 02/13/20 08:30 02/13/20 08:30 02/13/20 08:30 02/13/20 08:30 02/13/20 08:30 - General well developed, well nourished, no distress - Eyes PERRL - ENT normal pinna - Neck no masses - Respiratory normal expansion - Cardiovascular Rhythm: regular - Abdomen Abdomen: soft, non tender Assessment and Plan Assessment: Chronic cholecystis Biliary hyperkinesia We'll perform laparoscopic cholecystectomy
[2020-02-13] MEDS ORDERED: ROCURONIUM BROMIDE 10 MG/ML 5 ML VIAL IV ONE (09:28)
[2020-02-13] MEDS ORDERED: SUCCINYLCHOLINE CHLORIDE 100 MG/5 ML SYR IV ONE (09:28)
[2020-02-13] MEDS ORDERED: GLYCOPYRROLATE 0.2 MG/ML 2 ML VIAL ONE (09:28)
[2020-02-13] MEDS ORDERED: LIDOCAINE 1% INJ 10MG/ML (20 ML MDV) ONE (09:28)
[2020-02-13] MEDS ORDERED: MIDAZOLAM 2 MG/2 ML VIAL ONE (09:28)
[2020-02-13] MEDS ORDERED: NEOSTIGMINE 1 MG/ML 10 ML VIAL ONE (09:28)
[2020-02-13] MEDS ORDERED: PROPOFOL 10 MG/ML 20 ML VIAL IV ONE (09:28)
[2020-02-13] MEDS ORDERED: fentaNYL (PF) 50 MCG/ML 2 ML AMP ONE (09:28)
[2020-02-13] MEDS ORDERED: BUPIVACAIN-EPI 0.25%-1:200,000 30 ML VIAL SQ ONE (09:50)
[2020-02-13] MEDS ORDERED: LACTATED RINGERS 1,000 ML IV ONE (10:02)
--- NOTE | 2020-02-13 10:14 | P.OP ---
Date of Procedure: 02/13/20 Preoperative Diagnosis: Cholecystitis Postoperative Diagnosis: Cholecystitis Procedure(s) Performed: Laparoscopic cholecystectomy Anesthesia: JULIO Surgeon: Anibal Garg Estimated Blood Loss (ml): 5 Pathology: other (Gallbladder) Condition: stable Disposition: PACU Description of Procedure: The patient was placed on the operating table. The patient received a general endotracheal tube anesthesia. The patients abdomen was prepped and draped in the usual sterile fashion. Through an infraumbilical stab incision, the fascia of the anterior abdominal wall was grasped with a pair of Kochers and then the Veress needle was placed in the peritoneal cavity. Position of the Veress needle was confirmed with positive drop test. The abdomen was then insufflated. After adequate insufflation, the 10 mm trocar was placed in the peritoneal cavity. Following this the laparoscope was placed in the peritoneal cavity. The patient was placed in the head-up, right side up position and then a 5 mm trocar was placed in the right lateral and right subcostal position under direct visualization. A 8 mm trocar was placed in the epigastric position. The gallbladder was grasped in the fundus and infundibulum. Traction on the gallbladder was placed in the lateral and the cephalad positions. The triangle of Calot was visualized.. The cystic duct was bluntly dissected until the union of the cystic duct and common bile duct was seen. A critical view of safety was achieved. The cystic duct was then divided and sealed with the Harmonic scissors. A PDS Endoloop was then placed throughout the cystic duct stump. The cystic artery divided and sealed with the Harmonic scissors. The gallbladder was then removed from the liver bed using Harmonic scissors. The gallbladder was then extracted through the epigastric port site. Operative field was checked for any bleeding spots and Harmonic scissors was used to coagulate the liver bed. The abdomen was irrigated. The trocars were removed. The skin was closed using interrupted 3-0 Vicryl suture. Dermabond dressing were applied. The patient tolerated the procedure well.
[2020-02-13 10:18] VITALS: TEMP 97.1
[2020-02-13 11:24] VITALS: BP 123/64; PULSE 52
== END 2020-02-13 11:44 ==
LOC: OR 08:13
PROVIDERS: ATTEND Surgery
DX: K81.1 Chronic cholecystitis (principal); K21.9 Gastro-esophageal reflux disease without esophagitis; Z86.39 Personal history of other endocrine, nutritional and metabolic disease; Z87.442 Personal history of urinary calculi; Z96.641 Presence of right artificial hip joint; Z90.89 Acquired absence of other organs; Z98.890 Other specified postprocedural states; Z79.899 Other long term (current) drug therapy; Z88.5 Allergy status to narcotic agent
CPT/HCPCS: 47562; J2250; J1644; J1100; J2710; J0690; J2405; J2001; J3010; J0330; J2704; 88304

== ENCOUNTER → 2020-05-30 | Outpatient (CLI) | payer BC ==
--- NOTE | 2020-05-30 11:17 | XR ---
EXAMINATION TYPE: XR cervical spine limited DATE OF EXAM: 05/30/2020 COMPARISON: NONE HISTORY: Pain TECHNIQUE: 3 views are submitted. FINDINGS: The odontoid is intact. There are no compression deformities. The prevertebral soft tissue structur es are within normal limits. There is multilevel degenerative disc disease with posterior spondylosi s. Seen at levels C3-T1. Most marked findings at C4-5 and C5-C6. IMPRESSION: 1. Bilateral moderate to severe degenerative disc disease with posterior spondylosis most pronounced at C4-5 and C5-C6. Possible canal stenosis consider MRI follow-up..
--- NOTE | 2020-05-30 11:18 | XR ---
EXAMINATION TYPE: XR knee limited LT DATE OF EXAM: 05/30/2020 COMPARISON: NONE HISTORY: Pain TECHNIQUE: Two views are submitted. FINDINGS: Joint spaces are preserved. Osseous structures are intact. No acute fracture seen. Small amount of fluid in the suprapatellar bursa. IMPRESSION: 1. No acute fracture or dislocation. Small amount of fluid in the suprapatellar bursa.
--- NOTE | 2020-05-30 11:20 | XR ---
EXAMINATION TYPE: XR elbow limited LT DATE OF EXAM: 05/30/2020 COMPARISON: NONE HISTORY: Pain FINDINGS: Two views of the elbow demonstrate no pathologic joint effusion. The osseous structures are intact. There is no acute fracture or dislocation. IMPRESSION: 1. No acute fracture or dislocation. If symptoms persist follow-up study in 7 to 10 days could be ob tained.
== END | disposition home or self-care (01) ==
LOC: RADXRMAIN 10:30
PROVIDERS: ATTEND Nurse Practitioner Family
DX: M50.121 Cervical disc disorder at C4-C5 level with radiculopathy (principal); M47.22 Other spondylosis with radiculopathy, cervical region; M25.462 Effusion, left knee; M25.522 Pain in left elbow
CPT/HCPCS: 72040

== ENCOUNTER → 2020-10-17 | Outpatient (CLI) | payer OTHER ==
--- NOTE | 2020-10-18 08:37 | MR ---
EXAMINATION TYPE: MR shoulder LT wo con DATE OF EXAM: 10/17/2020 COMPARISON: Outside radiographs 10/08/2020 HISTORY: 45-year-old male with left shoulder pain for 4 months. Limited range of motion. TECHNIQUE: Multiplanar, multisequence imaging of the left shoulder is performed without contrast. FINDINGS: Slightly limited visualization of the intracapsular portion of the long head biceps tendon. The tendo n appears grossly intact. The extracapsular portion is appropriately situated along the bicipital jorge ove. Subscapularis tendon appears intact. Some heterogeneity of the supraspinatus tendon and mild bursal sided fraying. Otherwise, the supraspinatus and infraspinatus tendons remain intact. There is moderate degenerative change of the acromioclavicular joint with subchondral and periarticul ar marrow edema. No atrophy of the rotator cuff musculature. No bhavin lesion within the subacromial/subdeltoid bursa. A chain of small cysts spanning 1.1 cm craniocaudal and 4 mm wide are present along the upper to mid aspect of the posterior glenoid suspicious for para labral cysts signifying an underlying posterior l abral tear. Overall glenohumeral joint appears intact. No significant joint effusion. No Hill-Sachs deformity or os acromiale. There is patchy red marrow which can be seen with anemia, sm oking, and chronic disease. IMPRESSION: 1. Mild supraspinatus tendinosis and some mild bursal sided fraying. No discrete rotator cuff tear ot herwise seen. 2. Moderate AC joint OA but with prominent subchondral marrow and periarticular soft tissue edema. Co nsider acute exacerbation of underlying OA versus a mild AC joint sprain. 3. A chain of small cysts spanning 1.1 cm along the posterior glenoid highly suggestive of paralabral cysts and underlying posterior labral tear.
== END ==
LOC: RADMRIMAIN 12:38
PROVIDERS: ATTEND Orthopaedic Surgery
DX: M19.012 Primary osteoarthritis, left shoulder (principal); M67.814 Other specified disorders of tendon, left shoulder

== ENCOUNTER → 2021-07-28 | Outpatient (CLI) | payer OTHER ==
--- NOTE | 2021-07-28 09:28 | MR ---
EXAMINATION TYPE: MR brain/cspine wo DATE OF EXAM: 07/28/2021 COMPARISON: NONE HISTORY: Headache and neck pain. TECHNIQUE: Multiplanar, multisequence imaging of the brain and brainstem and cervical spine are all p erformed without IV contrast. FINDINGS: BRAIN: Diffusion weighted images demonstrate no evidence of a recent infarct or other diffusion abnormality. There is no extraaxial fluid collection or significant white matter signal abnormality. The ventricu lar system and cisternal spaces are normal in size and appearance. The brain volume is age appropria te. Midline structures demonstrate normal morphology. The craniocervical junction appears within normal limits. Normal vascular flow voids are present. Small mucous retention cyst or polyp in the posterior inferior right maxillary sinus otherwise paranasal sinuses are clear. Globes are intact bilaterally. IMPRESSION: Chronic right maxillary sinus disease otherwise unremarkable study Cervical spine: FINDINGS: Sagittal images of the cervical spine show the craniocervical junction to appear within nor mal limits. The cervical and upper thoracic spinal cord is normal in caliber and signal. Vertebral alignment is straightened. Mild to moderate disc space narrowing C3-C4 and C4-C5 levels. Vertebral julia dy heights are maintained. Focal osseous lesion C3 level possibly atypical hemangioma or enchondroma presumed benign. Axial images show C2-C3 level show left foraminal disc protrusion causing asymmetric mild left-sided neural foraminal narrowing. Axial images at C3-C4 level show foraminal disc protrusions causing moderate bilateral neural foramin al narrowing. Axial images at C4-C5 levels uncovertebral facet degenerative change on the left with foraminal spur disc complexes causing favy-pu-[id number] right and moderate to severe left-sided neural foraminal narr owing. Axial images at C5-C6 level shows broad-based posterior disc protrusion effacing the anterior thecal sac and causing moderate left greater than right bilateral neural foraminal narrowing. Axial images at C6-C7 and C7-T1 levels appear within normal limits. IMPRESSION: Straightening of cervical spine with mild to moderate multilevel degenerative changes as detailed above.
== END | disposition home or self-care (01) ==
LOC: RADMRIMAIN 07:15
PROVIDERS: ATTEND Orthopaedic Surgery
DX: M50.30 Other cervical disc degeneration, unspecified cervical region (principal)
CPT/HCPCS: 70551; 72141

== ENCOUNTER 2021-12-27 17:42 | Emergency (ER) | payer OTHER ==
[2021-12-27 18:26] VITALS: BP 139/82; PULSE 70; RESP 16; TEMP 98.2
[2021-12-27 18:45] LABS: Basophils # (A) 0.1 k/uL (0-0.2); Basophils % (A) 1 %; Eosinophils # (A) 0.3 k/uL (0-0.7); Eosinophils % (A) 3 %; HCT 46.7 % (39.0-53.0); HGB 14.8 gm/dL (13.0-17.5); Lymphocytes # (A) 2.4 k/uL (1.0-4.8); Lymphocytes % (A) 24 %; MCH 31.1 pg (25.0-35.0); MCHC 31.7 g/dL (31.0-37.0); MCV 98.1 fL (80.0-100.0); Mean Platelet Volume 7.2; Monocytes # (A) 0.6 k/uL (0-1.0); Monocytes % (A) 6 %; Neutrophils # (A) 6.4 k/uL (1.3-7.7); Neutrophils % (A) 64 %; Platelet Count 309 k/uL (150-450); RBC 4.75 m/uL (4.30-5.90); RDW 13.6 % (11.5-15.5)
[2021-12-27 18:52] LABS: Albumin 3.8 g/dL (3.5-5.0); Calcium 9.1 mg/dL (8.4-10.2); Potassium 4.3 mmol/L (3.5-5.1); Total Bilirubin 0.6 mg/dL (0.2-1.3); Total Protein 6.5 g/dL (6.3-8.2)
[2021-12-27 18:56] LABS: Appearance,Urine Clear (Clear); Bilirubin,Urine Negative (Negative); Blood,Urine Negative (Negative); Color,Urine Yellow; Glucose,Urine (UA) Negative (Negative); Hyaline Casts,Urine 11 /lpf (0-2); Ketones,Urine Trace (Negative); Leukocyte Esterase,Urine Trace (Negative); Mucus,Urine Few /hpf; Nitrite,Urine Negative (Negative); Protein,Urine Trace (Negative); RBC,Urine 3 /hpf (0-5); Specific Gravity,Urine 1.026 (1.001-1.035); WBC,Urine 4 /hpf (0-5)
== END 2021-12-27 21:29 | disposition left against medical advice (07) ==
LOC: EC 17:42
DX: Z53.21 Procedure and treatment not carried out due to patient leaving prior to being seen by health care provider (principal)
CPT/HCPCS: 36415; 80053; 81001; 85025; 99499

== ENCOUNTER → 2022-04-28 | Outpatient (CLI) | payer OTHER ==
--- NOTE | 2022-04-28 08:35 | MM ---
Reason for Exam: Clinical finding. Indicated Problems: Lump or thickening of both sides (size 10) for 6 Month(s). Prior Study Comparison: 10/23/2014 Bilateral Diagnostic Ultrasound, [facility]. Tissue Density: The breast tissue is almost entirely fat. Findings: Analyzed By CAD. Low density soft tissue extends away from the nipples bilaterally. Findings likely represent gynecomastia. Overall Assessment: Benign, BI-RAD 2 Management: Clinical Management of both breasts. A clinical breast exam by your physician is recommended on an annual basis and results should be correlated with mammographic findings. This exam should not preclude additional follow-up of suspicious palpable abnormalities. Results were given to the patient verbally at the time of exam. Electronically signed and approved by: Mansoor Adams DO
--- NOTE | 2022-04-28 09:34 | USB ---
Findings: The whole breast of both breasts, the axilla of both breasts and the retroareolar of both breasts were scanned. Right breast retroareolar flame-shaped suspected gynecomastia. Right breast 4:00 8 cm from nipple hyperechoic mass measuring 2.8 x 0.4 x 1.8 cm most consistent with lipoma. Right breast 4:00 8 cm from nipple hyperechoic mass measuring 0.4 x 0.4 x 1.8 cm most consistent with lipoma. Left breast retroareolar flame-shaped suspected gynecomastia. Left breast 4:00 7 cm from nipple hyperechoic mass measuring 1.7 x 0.6 x 2.0 cm most consistent with lipoma. Left breast 6:00 2 cm from nipple hyperechoic mass measuring 2.2 x 2.2 x 0.7 cm most consistent with lipoma. No suspicious masses identified. Overall Assessment: Benign, BI-RAD 2 Management: Clinical Management in 1 year. A clinical breast exam by your physician is recommended on an annual basis and results should be correlated with mammographic findings. Electronically signed and approved by: Mansoor Adams DO
== END | disposition home or self-care (01) ==
LOC: RADMAMWWP 07:55
PROVIDERS: ATTEND Surgery
DX: R92.8 Other abnormal and inconclusive findings on diagnostic imaging of breast (principal)
CPT/HCPCS: 77062; 77066

== ENCOUNTER → 2023-02-13 | Outpatient (CLI) | payer OTHER ==
[2023-02-13 23:17] LABS: Basophils # (A) 0.08 X 10*3/uL (0.00-0.10); Basophils % (A) 0.7 %; Eosinophils # (A) 0.06 X 10*3/uL (0.04-0.35); Eosinophils % (A) 0.5 %; HCT 51.3 % (39.6-50.0); HGB 17.5 d/dL (12.0-15.0); Lymphocytes # (A) 1.32 X 10*3/uL (0.90-5.00); Lymphocytes % (A) 11.1 %; MCH 32.5 pg (27.0-32.0); MCHC 34.1 d/dL (32.0-37.0); MCV 95.2 FL (80.0-97.0); Mean Platelet Volume 9.5 FL (9.5-12.2); Monocytes # (A) 0.73 X 10*3/uL (0.20-1.00); Monocytes % (A) 6.1 %; NRBC Per 100 WBC 0 X 10*3/uL (0.00-0.01); Neutrophils # (A) 9.67 X 10*3/uL (1.80-7.70); Neutrophils % (A) 81.3 %; Platelet Count 317 X 10*3/uL (140-440); RBC 5.39 X 10*6/uL (4.40-5.60); RDW 12.8 % (11.5-14.5); WBC 11.89 X 10*3/uL (4.50-10.00)
[2023-02-13 23:45] LABS: ALT 21 U/L (10-49); AST 24 U/L (14-35); Albumin 4.4 d/dL (3.8-4.9); Albumin/Globulin Ratio 1.76 Ratio (1.60-3.17); Alkaline Phosphatase 80 U/L (41-126); Amylase 49 U/L (23-121); Calcium 9.8 mg/dL (8.7-10.3); Carbon Dioxide 26.7 mmol/L (21.6-31.8); Chloride 103 mmol/L (96-109); Chol/HDL Ratio 7.45 Ratio; Globulin 2.5 d/dL (1.6-3.3); Glucose 86 mg/dL (70-110); LDL Cholesterol,Calculated 126.9 mg/dL (0.0-131.0); Lipase 46 U/L (14-60); Potassium 4.3 mmol/L (3.5-5.5); Sodium 140 mmol/L (135-145); T4, Free (Free Thyroxine) 1.24 ng/dL (0.80-1.80); Total Bilirubin 0.6 mg/dL (0.3-1.2); Total Protein 6.9 d/dL (6.2-8.2)
[2023-02-15 10:23] LABS: Gliadin AB IgA, Deaminated Negative (Negative); Gliadin AB IgA, Unit <0.5 U/mL; Gliadin AB IgG, Deaminated Negative (Negative); Gliadin AB IgG, Unit <0.4 U/mL
[2023-02-15 12:46] LABS: Clam IgE <0.10 kU/L; Codfish IgE <0.10 kU/L; Egg White IgE <0.10 kU/L; Peanut IgE <0.10 kU/L; Scallop IgE <0.10 kU/L; Shrimp IgE <0.10 kU/L; Soybean IgE <0.10 kU/L; Walnut IgE (Food) <0.10 kU/L
== END | disposition home or self-care (01) ==
LOC: LABWHC1 11:01
PROVIDERS: ATTEND Family Medicine
DX: Z00.00 Encounter for general adult medical examination without abnormal findings (principal); I10 Essential (primary) hypertension; E78.5 Hyperlipidemia, unspecified; R19.7 Diarrhea, unspecified
CPT/HCPCS: 36415; 80053; 80061; 82150; 82785; 83036; 83516; 83690; 84153; 84439; 84443; 85025; 86003

== ENCOUNTER → 2024-01-18 | Outpatient (CLI) | payer OTHER ==
--- NOTE | 2024-01-18 10:04 | XR ---
EXAMINATION TYPE: XR cervical spine comp DATE OF EXAM: 01/18/2024 COMPARISON: And [id number] HISTORY: Pain TECHNIQUE: Four views are submitted. FINDINGS: The odontoid is intact. There are no compression deformities. The prevertebral soft tissue structur es are within normal limits. Posterior spondylosis and multilevel efci-gd-wvgfoqrn degenerative disc disease primarily at level C3-C6. Straightening of the cervical spine. There is foraminal encroachme nt level C3-C6. IMPRESSION: 1. Multilevel degenerative disc disease and facet arthropathy with posterior spondylosis. There is mu ltilevel significant foraminal encroachment. MRI is recommended. Suspect multilevel canal stenosis.
== END | disposition home or self-care (01) ==
LOC: RADXRMAIN 09:24
PROVIDERS: ATTEND Family Medicine
DX: M47.812 Spondylosis without myelopathy or radiculopathy, cervical region (principal); M50.30 Other cervical disc degeneration, unspecified cervical region
CPT/HCPCS: 72050

== ENCOUNTER 2024-01-20 08:59 | Day surgery (SDC) | payer OTHER ==
[2024-01-18 12:20] VITALS: BMI 27.8
[2024-01-20 09:23] VITALS: TEMP 97.8
[2024-01-20] MEDS: LACTATED RINGERS 1,000 ML IV SCH (09:26)
[2024-01-20] MEDS: LIDOCAINE 1% (10MG/ML) FOR IV START INTRADERMA STA (09:27)
[2024-01-20] MEDS: IV FLUID CONTINUATION 1,000 ML IV ONE (09:28)
[2024-01-20] MEDS ORDERED: PROPOFOL 10 MG/ML 20 ML VIAL IV ONE (09:31)
[2024-01-20] MEDS ORDERED: LIDOCAINE 2% (PF) 20 MG/ML 5 ML VIAL ONE (09:31)
[2024-01-20] MEDS ORDERED: fentaNYL (PF) 50 MCG/ML 2 ML AMP ONE (09:31)
--- NOTE | 2024-01-20 09:38 | P.GSHP ---
History of Present Illness H&P Date: 01/20/24 Chief Complaint: GERD this a 48-year-old male presents today for EGD. Patient's had issues with GERD. Past Medical History Past Medical History: Hyperlipidemia Additional Past Medical History / Comment(s): KIDNEY STONES History of Any Multi-Drug Resistant Organisms: None Reported Past Surgical History: Joint Replacement, Orthopedic Surgery, Tonsillectomy Additional Past Surgical History / Comment(s): Rt hip replacement, hemorrhoidectomy, lasik eye surgery, bilateral shoulder surgery Past Anesthesia/Blood Transfusion Reactions: No Reported Reaction Past Psychological History: No Psychological Hx Reported Smoking Status: Never smoker Past Alcohol Use History: None Reported Past Drug Use History: None Reported - Past Family History Mother Family Medical History: No Reported History Medications and Allergies Home Medications Medication Instructions Recorded Confirmed Type Valtrex(Dose Unknown) 1 tab PO HS 06/01/19 01/18/24 History Allergies Allergy/AdvReac Type Severity Reaction Status Date / Time hydrocodone [From [place]] AdvReac Itching Verified 01/20/24 09:21 Surgical - Exam Vital Signs Temp Pulse Resp BP Pulse Ox 97.8 F 72 16 151/88 95 01/20/24 09:21 01/20/24 09:21 01/20/24 09:21 01/20/24 09:21 01/20/24 09:21 - General well developed, well nourished, no distress - Eyes PERRL - ENT normal pinna, normal nares - Neck no masses - Respiratory normal expansion - Cardiovascular Rhythm: regular - Abdomen Abdomen: soft, non tender Assessment and Plan Assessment: GERD. We'll perform EGD.
--- NOTE | 2024-01-20 09:44 | P.OP ---
Date of Procedure: 01/20/24 Preoperative Diagnosis: GERD Postoperative Diagnosis: mild antral gastritis Procedure(s) Performed: EGD Anesthesia: MAC Surgeon: Anibal Garg Pathology: other (antrum) Condition: stable Disposition: PACU Description of Procedure: the patient's placed on the endoscopy table in the lateral position. He received IV sedation. The gastroscope placed oropharynx passed in the esophagus and stomach. The scope was then placed through the pylorus. First and second portion duodenum appeared normal. Scope was then brought back the antrum and this appeared mildly inflamed. A biopsies was performed. The scope was then retroflexed and the remainder the stomach appeared normal. The GE junction was at 40 cm. The distal esophagus appeared normal. There was no evidence of a hiatal hernia. The proximal esophagus appeared normal. Scope withdrawn for patient.
[2024-01-20 10:14] VITALS: RESP 16
[2024-01-20 10:32] VITALS: BP 144/86; PULSE 68
== END 2024-01-20 10:54 | disposition home or self-care (01) ==
LOC: ORWHC2ENDO 08:59
PROVIDERS: ATTEND Surgery
DX: K31.9 Disease of stomach and duodenum, unspecified (principal); K21.9 Gastro-esophageal reflux disease without esophagitis; K29.70 Gastritis, unspecified, without bleeding; E78.5 Hyperlipidemia, unspecified; Z88.5 Allergy status to narcotic agent; Z87.442 Personal history of urinary calculi; Z79.899 Other long term (current) drug therapy
CPT/HCPCS: 88305; 43239; J3010; J2704; J2001